=== PATIENT | male | born 1970 | race Caucasian/White ===

== ENCOUNTER 2025-02-18 06:15 | Day surgery (SDC) | payer BC, MEDICARE, SELFPAY ==
[2025-02-15 13:25] VITALS: BMI 25.8
[2025-02-18 07:03] VITALS: BP 141/89; PULSE 79; RESP 18; TEMP 36.2; O2SAT 98
[2025-02-18] MEDS: LACTATED RINGERS 1000ML 1,000 ML 50 ML IV (07:12)
--- NOTE | 2025-02-18 07:24 | P.PNANES_ITS ---
[facility] Disclaimer: The information contained in this section may have been updated after the patient was seen, as this information can be updated by other users. Medical History GERD (gastroesophageal reflux disease) Hypercholesteremia Implantable loop recorder present Stroke Anti-phospholipid antibody syndrome Hypertension Surgical History Hx of colonoscopy Hx of cholecystectomy Family History Other Alcoholism Hypertension Social History Smoking Status: Never smoker alcohol intake: current alcohol intake frequency: a few times a month substance use type: denies use current occupational status: disabled Travel in the last 8 weeks?: None caffeine: Yes Have you lived/traveled outside [place] in past 30 days?: No Contact w/someone who lives/traveled outside US past 30 days?: No Exposure to someone with infectious disease in past 14 days?: No Do you have a fever (greater than 100.4 F or 38 C)?: No Have you tested positive for COVID-19?: No Exposed to someone with COVID-19 in past 14 days?: No Do you have a sore throat?: No Do you have a cough?: No Do you have any weakness?: No Are you experiencing any nausea/vomitting?: No Do you have any diarrhea?: No Are you experiencing any unusual bleeding?: No Do you have any muscle aches/pain?: No Do you have any abdominal pain?: No Are you experiencing loss of taste or smell?: No [facility] Anesthesia Checklist Patient Identification Patient Identification: Arm Band and Verbal (Name & ) Structural Data Admitted From: Home Planned Operative Procedure/s: EGD Consent for Planned Operative Procedure(s) Verified: Yes Verified Documents: Surgical Consent NPO Status Verified Time NPO: 00:00 Additional verifications Anesthesia Reactions: No Airway Assessment Mallampati Score:: Class I Dentition: Good Dentition Neurological Assessment Level of Consciousness: Awake, Alert and Appropriate Hx Seizures: No Anesthesia Plan Anesthesia Risk discussed: Yes Anesthesia Plan: Verified ASA Class: III Anesthesia Type: MAC
--- NOTE | 2025-02-18 07:44 | EXP.HP ---
History of Present Illness *Admission Date: 02/18/25 *Reason for visit:: Intractable GERD *History of present illness: Mr. Mcdonald is a 54-year-old gentleman who is here to reestablish. The patient has chronic intractable persistent heartburn and reflux. He is on pantoprazole and this is not helping. If he stops pantoprazole it is markedly worse. He formally had been seen for colonoscopy in November 2017 and this was normal without polyps but he did have larger internal hemorrhoids which were banded. He has had no further hemorrhoidal bleeding since then. The patient formerly had splenic flexure syndrome/functional abdominal pain and had colonoscopy with ca in 2010. He also had right upper quadrant abdominal pain and was seen by general surgery (Fracisco Garcia). He had a HIDA scan showing an EF of 27% and underwent cholecystectomy in August 2017. He did have improvement of his symptoms after gallbladder surgery. The patient reports no nausea, bloating, belching or dysphagia. He does have to supplement with Tums and Pepto-Bismol frequently. He does have a lot of gassiness. On exam he does have abdominal tightness distention. The patient did have 2 CVAs/strokes in 2021 and is on Coumadin. [facility] Disclaimer: The information contained in this section may have been updated after the patient was seen, as this information can be updated by other users. Medical History GERD (gastroesophageal reflux disease) Hypercholesteremia Implantable loop recorder present Stroke Anti-phospholipid antibody syndrome Hypertension Surgical History Hx of colonoscopy Hx of cholecystectomy Family History Other Alcoholism Hypertension Social History Smoking Status: Never smoker alcohol intake: current alcohol intake frequency: a few times a month substance use type: denies use current occupational status: disabled Travel in the last 8 weeks?: None caffeine: Yes Have you lived/traveled outside [place] in past 30 days?: No Contact w/someone who lives/traveled outside [place] past 30 days?: No Exposure to someone with infectious disease in past 14 days?: No Do you have a fever (greater than 100.4 F or 38 C)?: No Have you tested positive for COVID-19?: No Exposed to someone with COVID-19 in past 14 days?: No Do you have a sore throat?: No Do you have a cough?: No Do you have any weakness?: No Are you experiencing any nausea/vomitting?: No Do you have any diarrhea?: No Are you experiencing any unusual bleeding?: No Do you have any muscle aches/pain?: No Do you have any abdominal pain?: No Are you experiencing loss of taste or smell?: No Review of Systems Review of Systems Review of systems (narrative): Negative *Cardiovascular Comments: Negative *Gastrointestinal Comments: Negative *Genitourinary Comments: Negative *Musculoskeletal Comments: Negative *Neurologic Comments: Negative Meds Home Medications and Allergies Home Medications ?Medication ?Instructions ?Recorded ?Confirmed ?Type atorvastatin 40 mg tablet 40 mg PO DAILY 01/08/25 02/18/25 History bupropion HCl 300 mg 24 hr tablet, 400 mg PO ONCE 01/08/25 02/18/25 History extended release fremanezumab-vfrm 225 mg/1.5 mL 225 mg SQ ONCE 01/08/25 02/18/25 History subcutaneous auto-injector (Ajovy) gabapentin 600 mg tablet 600 mg PO DAILY 01/08/25 02/18/25 History lisinopril 2.5 mg tablet 2.5 mg PO BID 01/08/25 02/18/25 History lorazepam 1 mg tablet (Ativan) 1 mg PO DAILY PRN Anxiety 01/08/25 02/18/25 History meclizine 12.5 mg tablet 12.5 mg PO DAILY 01/08/25 02/18/25 History mirtazapine 7.5 mg tablet 7.5 mg PO DAILY 01/08/25 02/18/25 History pantoprazole 40 mg tablet,delayed 40 mg PO ONCE 01/08/25 02/18/25 History release promethazine 25 mg tablet 25 mg PO NEEDED PRN Nausea 01/08/25 02/18/25 History rimegepant 75 mg disintegrating 75 mg PO Q OTHER DAY PRN migraines 01/08/25 02/18/25 History tablet (Nurtec ODT) tadalafil 5 mg tablet 5 mg PO DAILY 01/08/25 02/18/25 History tramadol 50 mg tablet 50 mg PO DAILY PRN Pain 01/08/25 02/18/25 History warfarin 7.5 mg tablet 7.5 mg PO DAILY 01/08/25 02/18/25 History New Prescriptions to Start Prescriptions: Allergies Allergy/AdvReac Type Severity Reaction Status Date / Time Sulfa (Sulfonamide Allergy Rash Verified 02/18/25 06:59 Antibiotics) acetaminophen (From Percocet) AdvReac Nausea Verified 02/18/25 06:59 ondansetron (From Zofran) AdvReac Migraine Verified 02/18/25 06:59 oxycodone (From Percocet) AdvReac Nausea Verified 02/18/25 06:59 Exam Data for Last 24 hours Vital signs and Labs for Last 24 Hours: Temp Pulse Resp BP Pulse Ox O2 Del Method 97.1 F L 79 18 141/89 H 98 Room Air 02/18/25 07:03 02/18/25 07:03 02/18/25 07:03 02/18/25 07:03 02/18/25 07:03 02/18/25 07:03 I & O for Last 24 hours: Intake & Output 02/15/25 02/16/25 02/17/25 02/18/25 23:59 23:59 23:59 23:59 Weight 170 lb *Routine HEENT Exam Head: Present normocephalic Eye: Present EOMI and PERRL ENT: Present mucous membranes moist *Routine Neck Exam Neck: Present supple *Routine Respiratory Exam Respiratory: Present CTA bilaterally *Routine Cardiovascular Exam Cardiovascular: Present RRR *Routine Abdominal Exam Abdominal: Present soft and normoactive bowel sounds; Absent tenderness *Routine Rectal Exam Rectal:: deferred *Routine Genitalia Exam Genitalia:: deferred *Routine Extremities Exam Extremities: Absent cyanosis, clubbing or edema *Routine Skin Exam Skin: Present warm; Absent rash *Routine Neurological Exam Neurological: Present alert and oriented X3 Assessment and Plan *Assessment and plan (1) GERD (gastroesophageal reflux disease): Status: Acute Category: Medical Code(s): K21.9 - Gastro-esophageal reflux disease without esophagitis (2) Gassiness: Status: Acute Category: Medical Code(s): R14.0 - Abdominal distension (gaseous) (3) Diarrhea: Status: Acute Category: Medical Code(s): R19.7 - Diarrhea, unspecified Plan A/P: 1. Intractable GERD with gassiness and diarrhea is the preprocedural diagnosis. The patient will be anesthetized/sedated using MAC sedation. The patient has been seen and examined. Cardiac and lung assessment prior to the examination is stable. Proceed with planned EGD.
--- NOTE | 2025-02-18 07:47 | HMH.PROCNOTE ---
[facility] Procedure Note Date: 02/18/25 Time: 07:58 Procedure Note:: Upper Endoscopy Procedure Report: Esophagogastroduodenoscopy with cold biopsies Endoscopost: Sorin Anderson II, MD Referring Physician: Geoffrey Astudillo DO, [id number] [facility] [address] [place] [address] Date of Procedure: February 18, 2025 Equipment: Olympus GIF 190 standard upper endoscope Sedation: MAC sedation Indications: Mr. Mcdonald is a 54-year-old gentleman who is here to diagnostic upper endoscopy. The patient has chronic intractable persistent heartburn and reflux. He is on pantoprazole and this is not helping. If he stops pantoprazole it is markedly worse. He formally had been seen for colonoscopy in November 2017 and this was normal without polyps but he did have larger internal hemorrhoids which were banded. He has had no further hemorrhoidal bleeding since then. The patient formerly had splenic flexure syndrome/functional abdominal pain and had colonoscopy with me in 2010. He also had right upper quadrant abdominal pain and was seen by general surgery (Fracisco Garcia MD). He had a HIDA scan showing an EF of 27% and underwent cholecystectomy in August 2017. He did have improvement of his symptoms after gallbladder surgery. The patient reports no nausea, bloating, belching or dysphagia. He does have to supplement with Tums and Pepto-Bismol frequently. He does have a lot of gassiness. On exam he does have abdominal tightness distention. The patient did have 2 CVAs/strokes in 2021 and is on Coumadin. Procedure: Prior to the procedure, a history and physical exam was performed, and patient's medications and allergies were reviewed. The risks, benefits and alternatives of the sedation and procedure were discussed with the patient. All questions were answered and informed consent was obtained. The patient was brought to the procedure room. Patient identification and proposed procedure were verified by the physician and the nurse. The patient was placed in a left lateral decubitus position and the scope was passed under direct vision. Throughout the procedure, the patient's blood pressure, pulse, and oxygen saturations were monitored continuously. The upper GI endoscopy was accomplished without difficulty. The patient tolerated the procedure well. Findings: The scope was passed directly into the upper esophagus and advanced to the fourth portion of duodenum and proximal jejunum. Cold biopsies were taken from the proximal jejunum x 4 for disaccharidase assay. The proximal jejunum, post bulbar duodenum and duodenal bulb were normal with normal mucosa and conniventes. The scope was withdrawn through a normal duodenal bulb and pylorus into the stomach. There was very mild linear reactive gastropathy of the antrum. The body and fundus of the stomach were grossly normal. Upon retroflexion there was a very small sliding 1 to 2 cm hiatal hernia. The scope was then withdrawn into the esophagus. There was a single island of salmon-colored mucosa that was biopsied to rule out intestinal metaplasia/Tavarez's. There was no evidence of reflux esophagitis. The remainder of the esophageal mucosa was normal. Impression: 1. Single island of salmon-colored mucosa?rule out very short segment Tavarez's esophagus 2. Nonerosive GERD with very small sliding 1 to 2 cm hiatal hernia 3. Mild linear reactive gastropathy of antrum Plan: I will follow-up the biopsies and disaccharidase assay. I would recommend completion of testing for EPI. If this testing is normal, would consider broad digestive OTC enzymes and psyllium fiber supplementation.
[2025-02-18 07:51] VITALS: O2SAT 98
[2025-02-18 08:03] VITALS: BP 112/74; PULSE 86; RESP 16; TEMP 36.2; O2SAT 95
[2025-02-18 08:13] VITALS: BP 114/76; PULSE 81; RESP 16; O2SAT 98
--- NOTE | 2025-02-18 08:20 | EXP.ANES.CKL ---
[facility] Disclaimer: The information contained in this section may have been updated after the patient was seen, as this information can be updated by other users. Medical History GERD (gastroesophageal reflux disease) Hypercholesteremia Implantable loop recorder present Stroke Anti-phospholipid antibody syndrome Hypertension Surgical History Hx of colonoscopy Hx of cholecystectomy Family History Other Alcoholism Hypertension Social History Smoking Status: Never smoker alcohol intake: current alcohol intake frequency: a few times a month substance use type: denies use current occupational status: disabled Travel in the last 8 weeks?: None caffeine: Yes Have you lived/traveled outside [place] in past 30 days?: No Contact w/someone who lives/traveled outside [place] past 30 days?: No Exposure to someone with infectious disease in past 14 days?: No Do you have a fever (greater than 100.4 F or 38 C)?: No Have you tested positive for COVID-19?: No Exposed to someone with COVID-19 in past 14 days?: No Do you have a sore throat?: No Do you have a cough?: No Do you have any weakness?: No Are you experiencing any nausea/vomitting?: No Do you have any diarrhea?: No Are you experiencing any unusual bleeding?: No Do you have any muscle aches/pain?: No Do you have any abdominal pain?: No Are you experiencing loss of taste or smell?: No [facility] Anesthesia Checklist Patient Identification Patient Identification: Verbal (Name & ) Structural Data Admitted From: Home Planned Operative Procedure/s: egd NPO Status Verified Time NPO: 00:00 Additional verifications Anesthesia Reactions: No Airway Assessment Mallampati Score:: Class II C-Spine Mobility Assessed: Yes TMJ Mobility Assessed: Yes Dentition: Good Dentition Neurological Assessment Level of Consciousness: Awake, Alert and Appropriate Anesthesia Plan Anesthesia Risk discussed: Yes Anesthesia Plan: Verified ASA Class: II Anesthesia Type: MAC
[2025-02-18 08:23] VITALS: BP 125/76; PULSE 71; RESP 16; O2SAT 98
[2025-02-18 08:33] VITALS: BP 123/84; PULSE 73; RESP 16; O2SAT 99
[2025-02-22 16:05] LABS: Disclaimer Notes (.); Interpretation Notes (.); Lactase 2.26 (>/= 14.0); Maltase 471.58 (>/= 110.0); Palatinase 33.63 (>/= 8.5); Reference Notes (.); Sucrase 139.71 (>/= 25.0)
== END 2025-02-18 08:33 | disposition home or self-care (01) ==
PROVIDERS: PCP Internal Medicine; Visit Provider Internal Medicine Gastroenterology
PROC: 0DJ08ZZ Inspection of Upper Intestinal Tract, Via Natural or Artificial Opening Endoscopic (ICD-10-PCS; CPT 43239; principal; 2025-02-18 08:00)
DX: K21.9 Gastro-esophageal reflux disease without esophagitis (principal); R14.0 Abdominal distension (gaseous); R10.9 Unspecified abdominal pain; K44.9 Diaphragmatic hernia without obstruction or gangrene; K31.9 Disease of stomach and duodenum, unspecified
CPT/HCPCS: 43239; 82657; J7120